=== PATIENT | female | born 1995 | race Hispanic/Latino ===

== ENCOUNTER 2017-03-17 03:01 | Emergency (ER) | payer OTHER ==
[2017-03-17 03:22] VITALS: RESP 16
[2017-03-17] MEDS ORDERED: Sodium Chloride 0.9% 1,000 ML IV STA (04:17)
--- NOTE | 2017-03-17 04:20 | ED PDOC ---
HPI: Abdomen Time Seen by Provider: 03/17/17 04:00 Chief Complaint (Nursing): Abdominal Pain Chief Complaint (Provider): abdominal pain History Per: Patient History/Exam Limitations: no limitations Onset/Duration Of Symptoms: Hrs Current Symptoms Are (Timing): Gone Now Location Of Pain/Discomfort: Diffuse Quality Of Discomfort: Sharp Associated Symptoms: Back Pain Additional History Per: Patient Additional Complaint(s): 21 y/o female presents for evaluation of upper abdominal pain x 1 hour. Patient states pain woke her up from her sleep, with associated radiation to her back. Patient seen at Urgent Care yesterday for flu-like symptoms including headaches,weakness and vomiting; prescribed tamiflu and zofran. Denies fever, cough, congestion, chest pain, shortness of breath, palpitations, changes in bowel movements, urinary symptoms, recent travel, sick contacts. Past Medical History Reviewed: Historical Data, Nursing Documentation, Vital Signs Vital Signs: Last Vital Signs Temp 99.6 F 03/17/17 03:17 Pulse 107 H 03/17/17 03:17 Resp 16 03/17/17 03:17 BP 107/67 03/17/17 03:17 Pulse Ox 98 03/17/17 04:20 - Medical History PMH: No Chronic Diseases - Surgical History Surgical History: No Surg Hx - Family History Family History: States: No Known Family Hx - Home Medications Home Medications: Ambulatory Orders Medication Instructions Recorded Ibuprofen [Motrin] 1 tab PO Q8 PRN #21 tab 10/10/14 - Allergies Allergies/Adverse Reactions: Allergies Allergy/AdvReac Type Severity Reaction Status Date / Time No Known Allergies Allergy Verified 10/10/14 00:01 Review of Systems ROS Statement: Except As Marked, All Systems Reviewed And Found Negative Gastrointestinal: Positive for: Abdominal Pain Physical Exam - Reviewed Nursing Documentation Reviewed: Yes Vital Signs Reviewed: Yes - Physical Exam Appears: Positive for: Well, Non-toxic, No Acute Distress Head Exam: Positive for: ATRAUMATIC, NORMAL INSPECTION, NORMOCEPHALIC Skin: Positive for: Normal Color Eye Exam: Positive for: Normal appearance ENT: Positive for: Normal ENT Inspection Cardiovascular/Chest: Positive for: Regular Rate, Rhythm Respiratory: Positive for: Normal Breath Sounds Gastrointestinal/Abdominal: Positive for: Normal Exam Back: Positive for: Normal Inspection Extremity: Positive for: Normal ROM Neurologic/Psych: Positive for: Alert, Oriented - Laboratory Results Result Diagrams: 03/17/17 04:41 03/17/17 04:41 Urine POC: Negative Urine dip results: Negative for: Leukocyte Esterase, Blood, Nitrate - ECG O2 Sat by Pulse Oximetry: 98 - Progress ED Course And Treament: labs, urine, IV fluids On re-eval, patient states she is feeling better. Remains without abdominal pain Patient educated on findings, discharged with instructions to continue current medications. Fluids. [place] diet. Follow up PMD 2-3 days. Return precautions given. Disposition - Clinical Impression Clinical Impression: Abdominal pain - Patient ED Disposition Is Patient to be Admitted: No Counseled Patient/Family Regarding: Studies Performed, Diagnosis, Need For Followup - Disposition Disposition: Routine/Home Disposition Time: 05:32 Condition: IMPROVED Instructions: Abdominal Pain (ED) Forms: [facility] (Hungarian)
[2017-03-17 04:45] LABS: BASO % 0.3 % (0.0-2.0); EOS % 0.1 % (0.0-4.0); HEMOGLOBIN 12.9 g/dL (12.0-16.0); LYMPH # 0.8 K/uL (1.0-4.3); MEAN CELL VOLUME 81.8 fl (81.0-99.0); MEAN CORPUSCULAR HGB CONC 34.3 g/dL (33.0-37.0); MEAN PLATELET VOLUME 8.1 fl (7.2-11.7); MONO # 0.4 K/uL (0.0-0.8); MONO % 7.6 % (0.0-10.0); NEUT # 4.4 K/uL (1.8-7.0); NRBC % 0.2 % (0.0-0.0); RBC 4.62 Mil/uL (3.80-5.20); WHITE BLOOD COUNT 5.6 K/uL (4.8-10.8)
[2017-03-17 04:57] LABS: ALB/GLOB RATIO 1.2 (1.0-2.1); ALBUMIN 4.2 g/dL (3.5-5.0); ALT/SGPT 30 U/L (9-52); AST/SGOT 19 U/L (14-36); BLOOD UREA NITROGEN 11 mg/dl (7-17); CALCIUM 9.1 mg/dL (8.4-10.2); GFR AFRICAN-AMERICAN > 60; GFR NON-AFRICAN AMERICAN > 60; LIPASE 82 U/L (23-300)
[2017-03-17 05:38] VITALS: BP 107/83; PULSE 90; TEMP 98.5
[2017-03-17 05:39] VITALS: O2SAT 98
== END 2017-03-17 05:47 | disposition home or self-care (01) ==
LOC: H.ER 03:01
DX: R10.9 Unspecified abdominal pain (principal)
CPT/HCPCS: 80053; 83690; 85025; 87804; 99283; J7040